=== PATIENT | female | born 1940 | race Caucasian/White ===

== ENCOUNTER 2016-11-29 12:48 | Outpatient (RCR) | payer OTHER ==
[~2016-11-29 12:48] MED LIST: GABAPENTIN300 MG ORAL
== END 2016-12-12 | disposition home or self-care (01) ==
LOC: PTY 12:48
DX: G60.9 Hereditary and idiopathic neuropathy, unspecified (principal)

== ENCOUNTER 2016-12-13 12:45 | Outpatient (RCR) | payer OTHER | END 2017-01-09 | disposition home or self-care (01) | LOC: PTY 12:45 | DX: G60.9 Hereditary and idiopathic neuropathy, unspecified (principal) ==

== ENCOUNTER 2017-01-12 12:44 | Outpatient (RCR) | payer OTHER | END 2017-02-09 | disposition home or self-care (01) | LOC: PTY 12:44 | DX: G60.9 Hereditary and idiopathic neuropathy, unspecified (principal) ==

== ENCOUNTER → 2017-02-09 | Outpatient (RCR) | payer OTHER | END | disposition home or self-care (01) | LOC: PTY 14:00 | DX: M21.41 Flat foot [pes planus] (acquired), right foot (principal); M67.01 Short Achilles tendon (acquired), right ankle ==

== ENCOUNTER 2017-02-13 14:10 | Outpatient (RCR) | payer OTHER | END 2017-03-11 | disposition home or self-care (01) | LOC: PTY 14:10 | DX: M21.41 Flat foot [pes planus] (acquired), right foot (principal); M67.01 Short Achilles tendon (acquired), right ankle ==